=== PATIENT | female | born 1990 | race Caucasian/White ===

== ENCOUNTER → 2016-05-10 | Outpatient (CLI) | payer OTHER ==
[~2016-05-10] MED LIST: ISOVUE-370 76% 100ML VIAL (Q9967) As Ordered ONE
--- NOTE | 2016-05-10 14:26 | REP ---
HYSTEROSALPINGOGRAM: Patient was referred for hysterosalpingogram. Cervix was catheterized by the referring clinician who injected contrast. Contrast fills the uterine cavity with no contour abnormality. A few small air bubbles are seen in the endometrial cavity. No dominant filling defect is seen. There is free passage of contrast into both fallopian tubes, which are normal in caliber. There is free intraperitoneal spillage bilaterally with evidence of patency of the bilateral fallopian tubes. IMPRESSION: Essentially normal-appearing hysterosalpingogram as discussed above. 29 seconds of fluoroscopy time utilized for the procedure. Signed by Jose J Tan MD 05/10/2016 08:33 P
== END ==
LOC: M RADPRO 11:35
PROVIDERS: ATTEND Obstetrics & Gynecology
DX: O26.20 Pregnancy care for patient with recurrent pregnancy loss, unspecified trimester (principal)
CPT/HCPCS: 58340; 74740; Q9967

== ENCOUNTER 2017-01-30 21:53 | Outpatient (CLI) | payer OTHER ==
[~2017-01-30] VITALS: Ht 157.5 cm; Wt 72.8 kg
== END 2017-01-30 22:55 ==
LOC: M LDO 21:53
PROVIDERS: ATTEND Obstetrics & Gynecology
DX: O47.1 False labor at or after 37 completed weeks of gestation (principal); Z3A.39 39 weeks gestation of pregnancy

== ENCOUNTER 2017-01-31 04:43 | Inpatient (IN) | payer OTHER ==
[~2017-01-31] VITALS: Ht 157.5 cm; Wt 72.8 kg
[2017-01-31] VITALS (31 sets, daily range): BP systolic 83–128; BP diastolic 45–83
[2017-01-31] MEDS ORDERED: MORPHINE 10 MG/ML 1ML VIAL IV ONE (05:30)
[2017-01-31] MEDS: LR 1,000 ML IV SCH ×2 (07:16→17:22)
[2017-01-31] MEDS ORDERED: LACTATED RINGER'S 1000 ML IV STA (07:16)
--- NOTE | 2017-01-31 07:31 | HPEPDOC ---
Obstetrical History & Physical General Date of Admission History of Present Illness 25 y/o at 39+2 for reg ctx's. Presented at ~530-6 after being released the night before at ~2200. RN that checked her cx was the same both visits. No LOF/VB. Pos FM throughout. Prob list: H/O 2 SAB's in 2016 nuchal fold 7 mm at [facility] scan, 5.4 m at [facility] in [place] (not rec'd to be scanned again by M service) Chief Complaint: Contractions, term Information Provided By: Patient Care Care: Good Care Dating Final EDC by: LMP, 1st trimester (US) Past Medical History [employer] History: Spontaneous (x2, no D&C needed) Past Medical History Medical History denies Surgical History: Denies/None Family History Significant Family History: No pertinent family hx Family History denies Social History Social history denies Marital Status: Family situation: Spouse/partner home Psychosocial History: No pertinent psych hx * Smoker: non-smoker Alcohol: Denies Drugs: denies Abuse Violence Screening Have you been hit/kicked/slapp: No Have you been sexually assault: No Imunizations Tdap status: current Influenza Status: needs Allergies Coded Allergies: No Known Allergies (Unverified , 01/31/17) Physical Examination Physical Examination GENERAL: Alert and oriented times three. ABDOMEN: Gravid and non-tender to touch. FETUS: Is vertex (VTX) by sterile vaginal examination per RN, fetus is vertex ( VTX) by TAUS by myself, both Cx checks by same RN EXTREMITIES: No edema. Vital Signs/I&O Vital Signs Date Time Temp Pulse Resp B/P (MAP) Pulse Ox O2 Delivery O2 Flow Rate FiO2 01/31/17 05:46 20 Laboratory Data Urine Culture: No Growth Pertinent Laboratoy Data Blood Type: B+ RBC Antibody Screen: Negative HIV: Negative Hepatitis B: Negative Hepatitis C: Unknown Rapid Plasma Reagin: Immune Rubella: Immune Varicella: Immune Chlamydia/Gonorrhea: Negative Group B Streptococcus: Negative Quad Screen Test: Declined Cystic Fibrosis: Negative Glucose Tolerance Test: 99 Anatomy Ultrasound Ultrasound Date: Oct 02, 2016 Placenta Location: Posterior Normal Anatomy: No (Normal except for nuchal fold 7 mm and limited evals of the sacral spine, MFM US 4AUG) Placenta Previa: No Assessment Variability: Moderate Accelerations: Positive Decelerations: Late (X2 only), Variable (a few upon initial presentation) Tocometer Contractions: Yes Frequency: regular Duration: greater than 60 seconds Strength: palpated as moderate Assessment/Plan Assessment Reg painful ctx's, received 4 mg IV Morphine at 0600. This took the edge off. Upon FHT review (I was on the PP unit), it was decided due to the presence of intermittent variables and also 2 obvious late decels, 39+2, will augment if needed, induce. Plan Admit and orient. Desires eventual epidural. Vp [employer] and consent. Diet: clrs Group B Streptococcus (GBS) neg Labs and intravenous (IV) per unit protocol. Counseled on Pitocin and augmentation of labor (IOL). Lactated Ringers (LR): Bolus 1000, 125 LR thereafter Anticipate normal spontaneous delivery () C-S as appropriate. SBAR to Dr Miranda at 0730 Sessions SESSIONS,RIA Wynn MD Jan 31, 2017 07:31
[2017-01-31 07:57] LABS: MEAN CORPUSCULAR HGB CONC 32.8 g/dl (32.0-36.5); MEAN CORPUSCULAR VOLUME 88.4 fl (80.0-96.0); PLATELET COUNT, AUTOMATED 273 10^3/uL (150-450); WHITE BLOOD COUNT 14.6 10^3/uL (4.0-10.0)
--- NOTE | 2017-01-31 10:05 | IPNPDOC ---
Text Note Date of Service The patient was seen on 01/31/17. NOTE I assumed care of Nela at 0830. In brief, she is a 26yo with SIUP at 39+ weeks given morphine rest last night for painful consistent ctx with SCE then of 1-250/-2 and admission this morning for augmentation as needed with SCE 75/-2 but a few late FHR decels noted that immediately corrected with repositioning. She still feels ctx to be painful. Vitals wnl. SCE 2-75/-1 Patient would like epidural prior to AROM. Once patient has had epidural with stable vitals for >30min, will perform AROM Will start pitocin if needed after AROM. Safe to proceed. Dr. Erin Miranda MD VS,Prasanth, I+O VS, Prasanth, I+O Laboratory Tests 01/31/17 07:37 Red Blood Count 4.24, Mean Corpuscular Volume 88.4, Mean Corpuscular Hemoglobin 29.0, Mean Corpuscular Hemoglobin Concent 32.8, Red Cell Distribution Width 14.0 Vital Signs Date Time Temp Pulse Resp B/P (MAP) Pulse Ox O2 Delivery O2 Flow Rate FiO2 01/31/17 05:46 20 Erin Miranda MD Jan 31, 2017 10:05
[2017-01-31] MEDS ORDERED: FENTANYL 2MCG/ML ROPIVACAINE 0.2% IN 0.9% NACL 200ML IVBAG As Ordered ONE (10:08)
[2017-01-31] MEDS ORDERED: REFRIGERATOR IV KEYS XX PRN (11:30)
[2017-01-31] MEDS: FENTANYL/ROPIVACAINE/NACL BAG 200 ML EPIDURAL SCH (11:30)
[2017-01-31] MEDS ORDERED: LACTATED RINGER'S 1000 ML IV PRN (11:30)
[2017-01-31] MEDS ORDERED: NALOXONE INJ 0.4 MG/1 ML VIAL (J2310) IV PRN (11:30)
[2017-01-31] MEDS ORDERED: EPIDURAL COMMENT XX SCH (11:30)
[2017-01-31] MEDS ORDERED: EPIDURAL/PCA KEYS XX PRN (11:30)
[2017-01-31] MEDS ORDERED: diphenhydrAMINE INJ 50MG/ML VIAL (J1200) IV PRN (11:30)
[2017-01-31] MEDS ORDERED: ePHEDrine SULFATE 25 MG/5 ML(5MG/ML) SYRINGE IV PRN (11:30)
[2017-01-31] MEDS ORDERED: ONDANSETRON 4MG/2ML VIAL (J2405) IV PRN (11:30)
--- NOTE | 2017-01-31 12:44 | IPNPDOC ---
Text Note Date of Service The patient was seen on 01/31/17. NOTE Patient now comfortable with epidural. Vitals wnl. Cat I FHRT, ctx q2-4min SCE /-1 AROM performed with clear blood tinged fluid noted, tolerated well Will re-check in 4hr or earlier as indicated. No pitocin indicated currently, but after re-check, if not in active labor, will begin pitocin augmentation. Safe to proceed. Dr. Erin Miranda MD VS,Prasanth, I+O VS, Prasanth, I+O Laboratory Tests 01/31/17 07:37 Red Blood Count 4.24, Mean Corpuscular Volume 88.4, Mean Corpuscular Hemoglobin 29.0, Mean Corpuscular Hemoglobin Concent 32.8, Red Cell Distribution Width 14.0 Vital Signs Date Time Temp Pulse Resp B/P (MAP) Pulse Ox O2 Delivery O2 Flow Rate FiO2 01/31/17 12:24 97.8 81 18 99/58 (72) Erin Miranda MD Jan 31, 2017 12:44
[2017-01-31] MEDS ORDERED: OXYTOCIN DRIP 30 UNITS in APPROPRIATE DILUENT 1 EA IV SCH (17:15)
--- NOTE | 2017-01-31 17:15 | IPNPDOC ---
Text Note Date of Service The patient was seen on 01/31/17. NOTE Patient comfortable with epidural. Vitals wnl. FHRT Cat I ctx q5-6min SCE 4-5//-1 clear fluid Will begin pitocin and titrate per protocol Will recheck in 4hr or earlier as indicated Dr. Erin Miranda MD WeirConor CHO VS,Prasanth, I+O VS, Prasanth, I+O Laboratory Tests 01/31/17 07:37 Red Blood Count 4.24, Mean Corpuscular Volume 88.4, Mean Corpuscular Hemoglobin 29.0, Mean Corpuscular Hemoglobin Concent 32.8, Red Cell Distribution Width 14.0 Vital Signs Date Time Temp Pulse Resp B/P (MAP) Pulse Ox O2 Delivery O2 Flow Rate FiO2 01/31/17 12:24 97.8 81 18 99/58 (72) Erin Miranda MD Jan 31, 2017 17:15
--- NOTE | 2017-01-31 19:25 | IPNPDOC ---
Text Note Date of Service The patient was seen on 01/31/17. NOTE Called to room by RN for recurrent deep late/variable decels. Pt repositioned and O2 started, pitocin stopped and FHR tracing improved. SCE still 5/90/-1. IUPC placed for amnioinfusion. Discussed with patient will try amnioinfusion, however the fact that pitocin was at 6 and FHR decelerations were occurring and she is only 5cm does not julian well for labor progress and what the fetus is likely to tolerate. 250ml NS amnioinfusion now. Will re-start pitocin with favorable tracing and titrate per protocol. If another episode of FHR intolerance occurs, patient knows will likely relationship counselor toward . Dr. Erin Miranda MD ClintonConor CHO VS,Prasanth, I+O VS, Prasanth, I+O Laboratory Tests 01/31/17 07:37 Red Blood Count 4.24, Mean Corpuscular Volume 88.4, Mean Corpuscular Hemoglobin 29.0, Mean Corpuscular Hemoglobin Concent 32.8, Red Cell Distribution Width 14.0 Vital Signs Date Time Temp Pulse Resp B/P (MAP) Pulse Ox O2 Delivery O2 Flow Rate FiO2 01/31/17 18:25 98.0 67 18 100/62 (75) I&O- Last 24 Hours up to 6 AM 02/01/17 05:59 Output Total 750 ml Balance -750 ml Erin Miranda MD Jan 31, 2017 19:25
[2017-02-01] MEDS ORDERED: OXYTOCIN DRIP 30 UNITS in APPROPRIATE DILUENT 1 EA IV SCH (01:18)
[2017-02-01] MEDS ORDERED: DIBUCAINE 1% OINTMENT 30GM TOP PRN (01:30)
[2017-02-01] MEDS ORDERED: RHOGAM 300 MCG (1500 IU) INJ (J2790) IM SCH (01:30)
[2017-02-01] MEDS ORDERED: DOCUSATE SODIUM 100 MG CAP PO PRN (01:30)
[2017-02-01] MEDS ORDERED: MEASLES,MUMPS,RUBELLA VACCINE INJ (MMR-II) (90707) SC SCH (01:30)
[2017-02-01] MEDS ORDERED: LIDOCAINE 1% MDV INJ 50 ML VIAL INFIL ONE (01:30)
--- NOTE | 2017-02-01 01:40 | DNPDOC ---
[facility] Delivery Note Delivery Note DATE OF DELIVERY: January, PREDELIVERY DIAGNOSIS: 39w3d gestation, latent labor, augmentation for nonreassuring surveillance on presentation POST DELIVERY DIAGNOSIS: Delivered. PROCEDURE: Spontaneous vaginal delivery PATHOLOGY LABORATORY AIDE: Dr. Erin Miranda MD ANESTHESIA: epidural, lidocaine ESTIMATED BLOOD LOSS: 250 mL. FINDINGS: 7 pound 15 ounce male infant, Score 9/9 DELIVERY SUMMARY: Nela is a 26yo [id number] s/p uncomplicated at 39w3d after presenting to L&D in latent labor and undergoing augmentation for non-reassuring surveillance on presentation (a few subtle late FHR decelerations). She received epidural and progressed through labor to C/C/+1 at which point she had the desire to push. head delivered OA, restituted ORALIA. Left anterior shoulder delivered followed by posterior shoulder and corpus. Infant had spontaneous cry and vigorous, apgars 9/9, placed on maternal chest. Weight 9td50uk or 3590g. Umbilical cord clamped x2 and cut by FOB. With uterine massage and traction on the cord, placenta delivered spontaneously and intact with 3 vessel centrally inserted cord. More uterine massage and pitocin given per protocol. Inspection of perineum and vagina revealed small right labial laceration and 1mll repaired with 3-O vicryl suture in usual fashion using lidocaine injection for anesthesia. Total hemostasis observed. Mom and in stable condition. MD Ruben Saeed Katrina D MD Feb 01, 2017 01:40
[2017-02-01] MEDS: IBUPROFEN 800 MG TAB PO PRN ×3 (02:20→23:17)
[2017-02-01 03:31] VITALS: BP 106/55
[2017-02-01] MEDS: FENTANYL/ROPIVACAINE/NACL BAG 200 ML EPIDURAL SCH (03:40)
[2017-02-01 06:00] VITALS: BP 111/59
[2017-02-01] MEDS: PRENATAL VITAMINS CHEWABLE TABLET PO SCH (08:58)
[2017-02-01] MEDS: ACETAMINOPHEN 500 MG TAB PO PRN ×2 (09:02→18:05)
[2017-02-01 18:11] VITALS: BP 107/59
[2017-02-02] MEDS: ACETAMINOPHEN 500 MG TAB PO PRN (05:28)
[2017-02-02 06:10] VITALS: BP 111/62
--- NOTE | 2017-02-02 07:54 | IPNPDOC ---
Text Note Date of Service The patient was seen on 02/02/17. NOTE PPD1 prog note States feeling well, no complaints. No heavy VB. Pain controlled. Voiding, ambulatory. Bonding well and feeding well. VSSAF CTAB RRR Ut at U-2, firm Ext no CCE a/p: Doing well. routine pp care. NICU d/c'ing the baby, OK to d/c today. Sessions VS,Prasanth, I+O VSPrasanth, I+O Vital Signs Date Time Temp Pulse Resp B/P (MAP) Pulse Ox O2 Delivery O2 Flow Rate FiO2 02/02/17 06:10 97.7 73 18 111/62 (78) Room Air 02/01/17 06:00 96 SESSIONS,RIA Wynn MD Feb 02, 2017 07:54
--- NOTE | 2017-02-02 08:04 | DS.PDOC ---
Discharge Summary General Date of Admission Jan 31, 2017 at 07:20 Date of Discharge [id number] Discharge Summary Discharge Summary Admission Diagnosis: Contractions and non-reassuring heart tracing Discharge Diagnosis: s/p uncomplicated vaginal delivery Condition: stable Meds on discharge: Dwain Santana Hospital Course: Pt is a 26 y/o female admitted with a non-reassuring heart tracing. Was overall reassuring. Progressed in labor, see delivery note for details. On PPD#1, the pt had normal VS, the pt was tolerating reg diet, ambulating, pain was well controlled, minimal lochia and infant was discharged by the NICU staff. She was also desirous of discharge and was discharged home with follow up in 6-8wks in OB clinic. Home recommendations: Nothing in vagina for 6 weeks, no bathing for 4 weeks Sessions Vital Signs/I&Os Vital Signs Date Time Temp Pulse Resp B/P (MAP) Pulse Ox O2 Delivery O2 Flow Rate FiO2 02/02/17 06:10 97.7 73 18 111/62 (78) Room Air 02/01/17 06:00 96 Allergies Coded Allergies: No Known Allergies (Unverified , 01/31/17) SESSIONS,RIA Wynn MD Feb 02, 2017 08:04
[2017-02-02] MEDS: PRENATAL VITAMINS CHEWABLE TABLET PO SCH (08:47)
[2017-02-02] MEDS: IBUPROFEN 800 MG TAB PO PRN (08:48)
[2017-02-02] MEDS ORDERED: PRENTAB9 PO (11:32)
[2017-02-02] MEDS ORDERED: ACET50TA PO (11:33)
[2017-02-02] MEDS ORDERED: IBUP-1114 PO (11:33)
[2017-02-02] MEDS ORDERED: COLA100C5 PO (11:34)
== END 2017-02-02 12:25 | disposition home or self-care (01) | DRG 775 ==
LOC: M LDO 04:43 → M LDI 07:20 → M OBS 02-01 02:41
PROVIDERS: ADMIT Obstetrics & Gynecology; ATTEND Obstetrics & Gynecology
PROC: 10907ZC Drainage of Amniotic Fluid, Therapeutic from Products of Conception, Via Natural or Artificial Opening (ICD-10-PCS; 2017-01-31)
PROC: 10E0XZZ Delivery of Products of Conception, External Approach (ICD-10-PCS; principal; 2017-02-01)
PROC: 0HQ9XZZ Repair Perineum Skin, External Approach (ICD-10-PCS; 2017-02-01)
DX: O76 Abnormality in fetal heart rate and rhythm complicating labor and delivery (principal); Z3A.39 39 weeks gestation of pregnancy; O70.0 First degree perineal laceration during delivery; Z37.0 Single live birth